=== PATIENT | male | born 1945 | race Hispanic/Latino ===

== ENCOUNTER 2017-01-24 22:13 | Inpatient (IN) | payer MEDICARE ==
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
--- NOTE | 2017-01-25 00:18 | ED PDOC ---
- Laboratory Results Result Diagrams: 01/24/17 23:50 01/24/17 23:50 - ECG O2 Sat by Pulse Oximetry: 98 Medical Decision Making Medical Decision Makin Patient signed out to me from Estela Duke MD pending ED work up (labs and imaging). 0130 US FINDINGS Right deep veins: Unremarkable. No DVT in the right common femoral, femoral, proximal deep femoral or popliteal veins. The veins demonstrate normal color flow, are normally compressible, with normal phasic flow and/or augmentation response. Right superficial veins: Unremarkable. No thrombus in the visualized right great saphenous vein. Left deep veins: Unremarkable. No DVT in the left common femoral, femoral, proximal deep femoral or popliteal veins. The veins demonstrate normal color flow, are normally compressible, with normal phasic flow and/or augmentation response. Left superficial veins: Unremarkable. No thrombus in the visualized left great saphenous vein. Soft tissues: No acute findings. No popliteal cyst. IMPRESSION: Normal bilateral lower extremity duplex venous ultrasound. 0224 Patient has been medically cleared for crisis. 0233 CT HEAD FINDINGS Brain: Cerebral and cerebellar volume loss. Patchy hypodensity is seen in the periventricular and subcortical white matter. Bilateral basal ganglia calcifications. No hemorrhage. Ventricles: Unremarkable. No ventriculomegaly. Bones/joints: Unremarkable. No acute fracture. Soft tissues: Unremarkable. Sinuses: Bilateral middle turbinate norma bullosa. Mastoid air cells: Unremarkable. No mastoid effusion. Other findings: There is a tiny hypodensity along the anterior parafalcine region seen on image 48 series 4 and image 29 through 33 series 602. IMPRESSION: 1. No evidence of an acute intracranial hemorrhage, midline shift or mass effect is identified. 0516 Patient has agreed to sign in to [facility]. Dx: bipolar disorder Scribe Attestation: Documented by Tory Portillo acting as a scribe for Rah Head MD. Scribe Attestation: All medical record entries made by the Scribe were at my direction and personally dictated by me. I have reviewed the chart and agree that the record accurately reflects my personal performance of the history, physical exam, medical decision making, and the department course for this patient. I have also personally directed, reviewed, and agree with the discharge instructions and disposition. Disposition - Clinical Impression Clinical Impression: Bipolar disorder - POA Present On Arrival: None - Disposition Disposition: Admitted as In-Patient Disposition Time: 05:00 Condition: STABLE
[2017-01-25 00:43] LABS: BASO % 0.6 % (0.0-2.0); EOS # 0.2 K/uL (0.0-0.7); EOS % 2.8 % (0.0-4.0); HEMATOCRIT 36.2 % (35.0-51.0); MEAN CELL VOLUME 89.1 fl (80.0-94.0); MEAN CORPUSCULAR HEMOGLOBIN 29.6 pg (27.0-31.0); MEAN CORPUSCULAR HGB CONC 33.2 g/dL (33.0-37.0); MEAN PLATELET VOLUME 8.1 fl (7.2-11.7); MONO # 0.7 K/uL (0.0-0.8); MONO % 11.6 % (0.0-10.0); NEUT # 4.4 K/uL (1.8-7.0); RED CELL DISTRIBUTION WIDTH 15.3 % (11.5-14.5); WHITE BLOOD COUNT 6.5 K/uL (4.8-10.8)
[2017-01-25 00:46] LABS: RBC URINE 1 /hpf (0-3); URINE BACTERIA RARE (<OCC); URINE BILIRUBIN NEGATIVE (NEGATIVE); URINE BLOOD NEGATIVE (NEGATIVE); URINE COLOR STRAW (YELLOW); URINE GLUCOSE (UA) NEG (Normal); URINE KETONE NEGATIVE (NEGATIVE); URINE LEUKOCYTE ESTERASE NEG Leu/uL (Negative); URINE PROTEIN NEGATIVE (NEGATIVE); URINE UROBILINOGEN 0.2-1.0 mg/dL (0.2-1.0); WBC URINE 1 /hpf (0-5)
[2017-01-25 00:58] LABS: ALB/GLOB RATIO 1.6 (1.0-2.1); ALCOHOL SERUM < 10 mg/dl (0-10); ALKALINE PHOSPHATASE 105 U/L (38-126); ALT/SGPT 40 U/L (21-72); AST/SGOT 28 U/L (17-59); BILIRUBIN,TOTAL 0.3 mg/dl (0.2-1.3); BLOOD UREA NITROGEN 31 mg/dl (9-20); CALCIUM 9.1 mg/dL (8.4-10.2); CARBON DIOXIDE 21 mmol/L (22-30); CHLORIDE 111 mmol/L (98-107); GFR AFRICAN-AMERICAN > 60; GLUCOSE,RANDOM 90 mg/dL (75-110); MAGNESIUM 2.4 MG/DL (1.6-2.3); PHOSPHOROUS 3.2 mg/dl (2.5-4.5); POTASSIUM 3.9 MMOL/L (3.6-5.0); SODIUM 139 mmol/l (132-148); TOTAL PROTEIN 6.4 G/DL (6.3-8.2)
[2017-01-25 01:25] LABS: THYROID STIMULATING HORMONE 2.47 mIU/ML (0.46-4.68)
--- NOTE | 2017-01-25 01:30 | US ---
EXAM: US Duplex Bilateral Lower Extremity Veins CLINICAL HISTORY: 71 years old, male; Signs and symptoms; Swelling of limb; Lower extremity, bilateral; Additional info: Leg swelling h/o dvt TECHNIQUE: Real-time ultrasound scan of the veins of the bilateral lower extremities with color Doppler flow, spectral waveform analysis and compression. COMPARISON: No relevant prior studies available. FINDINGS: Right deep veins: Unremarkable. No DVT in the right common femoral, femoral, proximal deep femoral or popliteal veins. The veins demonstrate normal color flow, are normally compressible, with normal phasic flow and/or augmentation response. Right superficial veins: Unremarkable. No thrombus in the visualized right great saphenous vein. Left deep veins: Unremarkable. No DVT in the left common femoral, femoral, proximal deep femoral or popliteal veins. The veins demonstrate normal color flow, are normally compressible, with normal phasic flow and/or augmentation response. Left superficial veins: Unremarkable. No thrombus in the visualized left great saphenous vein. Soft tissues: No acute findings. No popliteal cyst. IMPRESSION: Normal bilateral lower extremity duplex venous ultrasound.
--- NOTE | 2017-01-25 02:34 | CT ---
EXAM: CT Head Without Intravenous Contrast CLINICAL HISTORY: 71 years old, male; Signs and symptoms; Psychosis or psychotic disorder; Unspecified TECHNIQUE: Axial computed tomography images of the head/brain without intravenous contrast. All CT scans at this facility use one or more dose reduction techniques, viz.: automated exposure control; ma/kV adjustment per patient size (including targeted exams where dose is matched to indication; i.e. head); or iterative reconstruction technique. 309 images are submitted. Coronal and sagittal reformatted images were created and reviewed. COMPARISON: No relevant prior studies available. FINDINGS: Brain: Cerebral and cerebellar volume loss. Patchy hypodensity is seen in the periventricular and subcortical white matter. Bilateral basal ganglia calcifications. No hemorrhage. Ventricles: Unremarkable. No ventriculomegaly. Bones/joints: Unremarkable. No acute fracture. Soft tissues: Unremarkable. Sinuses: Bilateral middle turbinate norma bullosa. Mastoid air cells: Unremarkable. No mastoid effusion. Other findings: There is a tiny hypodensity along the anterior parafalcine region seen on image 48 series 4 and image 29 through 33 series 602. IMPRESSION: 1. No evidence of an acute intracranial hemorrhage, midline shift or mass effect is identified.
--- NOTE | 2017-01-25 06:22 | PCM.BM ---
Treatment Plan Problems - Problems identified on initial assessmt altered thought process Date Initiated: 01/25/17 Time Initiated: 06:21 Assessment reference: NA Status: Active medication non adherence Assessment reference: NA Status: Active Treatment assets and liabiliti Patient Assests: good support system, negotiates basic needs Patient Liabilities: medical problems
--- NOTE | 2017-01-25 06:30 | PCM.BM ---
<Myrtle Moncada - Last Filed: 01/25/17 06:55> Treatment Plan Problems - Problems identified on initial assessmt altered thought process Date Initiated: 01/25/17 Time Initiated: 06:21 Assessment reference: NA Status: Active medication non adherence Assessment reference: NA Status: Active Treatment assets and liabiliti Patient Assests: ADL independent, good support system, negotiates basic needs Patient Liabilities: medical problems, other - Milieu Protocol Maintain good personal hygiene: daily Encourage regular showers, daily Remind patient to perform daily oral care, daily Assist patient to perform ADL's Conduct patient checks and document Observation sheet: Q15 minutes Maintain personal safety: every shift Educate patient to report safety concerns to staff, every shift Monitor environment for contraband/sharps Medication safety: Monitor for expected outcome, potential side effects: every shift, Assess barriers to learning: every shift, Assess readiness for medication education: every shift <Malena Delgado - Last Filed: 01/25/17 11:24> - Diagnosis (1) Bipolar 1 disorder Status: Chronic Interventions: Medication management, Individual and group therapy, Psychoeducation 01/25/17 11:24 <Shawn Amanda - Last Filed: 01/27/17 14:04> Family Contact Family involvement: Patient does not wish Family/SO involvement Family contact: Patient declines to allow family contact at present Family contact name: Pt declined - Goals for Treatment Patient goals for treatment: Pt has signed a 48 hour notice and does not feel that he requires treatment at this time. Discharge/Continuing Care - Education Needs Education Needs: Patient Medication, Patient Diagnosis/Disease Process, Patient Coping Skills, Patient Community resources, Patient Aftercare Safety Plan - Discharge Discharge Criteria: Tolerates medication w/o severe side effects, Free of agitation, Normal sleep pattern, Reduction of target symptoms Discharge to:: Home - Treatment Team Participation Was Patient/Family/SO present at Treatment Team Meeting: Yes
[2017-01-25] MEDS ORDERED: Alum-Mag Hydrox-Simethicone Susp (30 mL) PO PRN (06:37)
[2017-01-25] MEDS ORDERED: Magnesium Hydroxide Susp 30 ml UD PO PRN (06:37)
[2017-01-25] MEDS ORDERED: Bismuth Subsalicylate 262 mg/15 ml Sus (240 ml) PO PRN (06:37)
--- NOTE | 2017-01-25 07:01 | RAD ---
HISTORY: psychosis COMPARISON: No prior. FINDINGS: LUNGS: No active pulmonary disease. PLEURA: No significant pleural effusion identified, no pneumothorax apparent. CARDIOVASCULAR: No radiographic findings to suggest acute or significant cardiovascular disease. OSSEOUS STRUCTURES: No significant abnormalities. VISUALIZED UPPER ABDOMEN: Normal. OTHER FINDINGS: None. IMPRESSION: No active disease.
[2017-01-25 08:25] LABS: T4 8.5 ug/dl (5.5-11.0)
[2017-01-25 08:38] LABS: THYROID STIMULATING HORMONE 2.29 mIU/ML (0.46-4.68)
--- NOTE | 2017-01-25 11:03 | CARD ---
APPROVED REPORT EKG Measurement Heart [id number] <Conclusion> Normal sinus rhythm wandering baseline
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
--- NOTE | 2017-01-25 15:06 | CP.PCM.CON ---
<Izabel Rincon - Last Filed: 01/25/17 15:43> History of Present Illness - History of Present Illness History of Present Illness: 71 y/o male seen at bedside in psych unit after consult for medical evaluation. Pt states he admitted himself into the hospital for his bipolar disorder and crazy sexual thoughts. Pt denies suicidal or homicidal ideations. Pt states he does not take any meds that have been prescribed to him. Pt states he does not go and see any doctors regularly. Pt denies any auditory or visual hallucinations. Pt has no physical complaints at this time. Pt denies F/C/N/V/ROMAN /CP/SOB. Pt denies abdominal pain, diarrhea or constipation. PMH: HTN, CKD stage II, bipolar disorder, psychosis, DVT, leaky heart valve PSH: R hip replacement, L ankle and foot surgery All: NKDA Social: former EtOH drinker (>20 yrs), former cig smoker (>30 yrs), former illicit drug user, stating he has tried all drugs Family: denies family history of diabetes, heart disease or stroke. States he lives locally with his girlfriend Review of Systems - Review of Systems All systems: reviewed and no additional remarkable complaints except (per HPI) Past Patient History - Past Medical History & Family History Past Medical History?: Yes - Past Social History Alcohol: None Drugs: Denies - CARDIAC Hx Hypertension: Yes - PULMONARY Hx Tuberculosis: No - NEUROLOGICAL HX Cerebrovascular Accident: No Hx Seizures: No - HEENT Hx HEENT Problems: Yes Hx Cataracts: Yes - RENAL Hx Chronic Kidney Disease: Yes - ENDOCRINE/METABOLIC Hx Endocrine Disorders: No - HEMATOLOGICAL/ONCOLOGICAL Hx Cancer: No Hx Human Immunodeficiency Virus (HIV): No - INTEGUMENTARY Hx Dermatological Problems: No - MUSCULOSKELETAL/RHEUMATOLOGICAL Hx Arthritis: Yes - GASTROINTESTINAL Hx Gastrointestinal Disorders: No - GENITOURINARY/GYNECOLOGICAL Hx Sexually Transmitted Disorders: No - PSYCHIATRIC Hx Bipolar Disorder: Yes Hx Depression: Yes - SURGICAL HISTORY Hx Surgeries: Yes Hx Orthopedic Surgery: Yes (Rhip, L ankle, ft.) Other/Comment: left. foot cyst removal/ broken bone 1992 - ANESTHESIA Hx Anesthesia: Yes Hx Anesthesia Reactions: No Hx Malignant Hyperthermia: No Meds Allergies/Adverse Reactions: Allergies Allergy/AdvReac Type Severity Reaction Status Date / Time No Known Allergies Allergy Verified 01/25/17 08:38 - Medications Medications: Current Medications Acetaminophen (Tylenol 325mg Tab) 650 mg PO Q4 PRN PRN Reason: Pain, moderate (4-7) Al Hydrox/Mg Hydrox/Simethicone (Maalox Plus 30 Ml) 30 ml PO Q4 PRN PRN Reason: Dyspepsia Bismuth Subsalicylate (Pepto-Bismol) 524 mg PO Q4 PRN PRN Reason: Diarrhea Lorazepam (Ativan) 0.5 mg PO HS PRN PRN Reason: Insomnia Stop: 02/08/17 06:38 Lorazepam (Ativan) 0.5 mg PO Q6 PRN PRN Reason: Anixety/Agitation Stop: 02/08/17 06:38 Magnesium Hydroxide (Milk Of Magnesia) 30 ml PO HS PRN PRN Reason: Constipation Olanzapine (Zyprexa) 5 mg PO Q12 CALLIE Physical Exam - Constitutional Appears: Well, Non-toxic, No Acute Distress - Head Exam Head Exam: ATRAUMATIC, NORMOCEPHALIC - Eye Exam Eye Exam: EOMI, Normal appearance, PERRL Pupil Exam: NORMAL ACCOMODATION, PERRL - ENT Exam ENT Exam: Mucous Membranes Moist, Normal Exam - Neck Exam Neck exam: Positive for: Full Rom, Normal Inspection. Negative for: Tenderness - Respiratory Exam Respiratory Exam: Clear to Auscultation Bilateral, NORMAL BREATHING PATTERN. absent: Rales, Wheezes, Respiratory Distress, Stridor - Cardiovascular Exam Cardiovascular Exam: REGULAR RHYTHM, +S1, +S2. absent: Gallop, JVD, Systolic Murmur - GI/Abdominal Exam GI & Abdominal Exam: Normal Bowel Sounds, Soft. absent: Distended - Rectal Exam Rectal Exam: Deferred - Extremities Exam Extremities exam: Positive for: normal capillary refill, pedal edema, pedal pulses present Additional comments: +1 pitting edema noted to B/L legs, extending to level of ankle. Diffuse ecchymotic skin lesions noted to forearm B/L. - Back Exam Back exam: NORMAL INSPECTION. absent: tenderness - Neurological Exam Neurological exam: Abnormal Gait, Alert Additional comments: staggered short stride gait - Psychiatric Exam Psychiatric exam: Normal Affect, Normal Mood - Skin Additional comments: diffuse purpuric skin deposits due to terminal manager anti-coagulation Results - Vital Signs Recent Vital Signs: Last Vital Signs Temp 97.9 F 01/25/17 05:51 Pulse 66 10/31/17 05:51 Resp 20 01/25/17 06:17 BP 151/84 H 01/25/17 05:51 Pulse Ox 99 01/25/17 05:41 - Labs Result Diagrams: 01/24/17 23:50 01/24/17 23:50 Labs: Laboratory Results - last 24 hr 01/24/17 01/24/17 01/25/17 23:50 23:50 00:10 WBC 6.5 RBC 4.07 L Hgb 12.0 Hct 36.2 MCV 89.1 MCH 29.6 MCHC 33.2 RDW 15.3 H Plt Count 164 MPV 8.1 Neut % (Auto) 69.0 Lymph % (Auto) 16.0 L Duval % (Auto) 11.6 H Eos % (Auto) 2.8 Baso % (Auto) 0.6 Neut # 4.4 Lymph # 1.0 Duval # 0.7 Eos # 0.2 Baso # 0.0 Sodium 139 Potassium 3.9 Chloride 111 H Carbon Dioxide 21 L Anion Gap 11 BUN 31 H Creatinine 1.4 Est GFR ( Amer) > 60 Est GFR (Non-Af Amer) 50 Random Glucose 90 Calcium 9.1 Phosphorus 3.2 Magnesium 2.4 H Ferritin Total Bilirubin 0.3 AST 28 ALT 40 Alkaline Phosphatase 105 Troponin I 0.0270 NT-Pro-B Natriuret Pep 253 Total Protein 6.4 Albumin 3.9 Globulin 2.5 Albumin/Globulin Ratio 1.6 Vitamin B12 Free T4 Thyroxine (T4) TSH 3rd Generation 2.47 Urine Color Urine Clarity Urine pH Ur Specific Cobb Urine Protein Urine Glucose (UA) Urine Ketones Urine Blood Urine Nitrate Urine Bilirubin Urine Urobilinogen Ur Leukocyte Esterase Urine RBC (Auto) Urine Microscopic WBC Urine Bacteria Urine Opiates Screen Negative Urine Methadone Screen Negative Ur Barbiturates Screen Negative Ur Phencyclidine Scrn Negative Ur Amphetamines Screen Negative U Benzodiazepines Scrn Negative U Oth Cocaine Metabols Negative U Cannabinoids Screen Negative Alcohol, Quantitative < 10 01/25/17 01/25/17 01/25/17 00:10 07:30 07:30 WBC RBC Hgb Hct MCV MCH MCHC RDW Plt Count MPV Neut % (Auto) Lymph % (Auto) Duval % (Auto) Eos % (Auto) Baso % (Auto) Neut # Lymph # Duval # Eos # Baso # Sodium Potassium Chloride Carbon Dioxide Anion Gap BUN Creatinine Est GFR ( Amer) Est GFR (Non-Af Amer) Random Glucose Calcium Phosphorus Magnesium Ferritin 72.5 Total Bilirubin AST ALT Alkaline Phosphatase Troponin I NT-Pro-B Natriuret Pep Total Protein Albumin Globulin Albumin/Globulin Ratio Vitamin B12 969 H Free T4 1.12 Thyroxine (T4) 8.50 TSH 3rd Generation 2.29 Urine Color Straw Urine Clarity Clear Urine pH 5.0 Ur Specific Cobb < 1.005 Urine Protein Negative Urine Glucose (UA) Neg Urine Ketones Negative Urine Blood Negative Urine Nitrate Negative Urine Bilirubin Negative Urine Urobilinogen 0.2-1.0 Ur Leukocyte Esterase Neg Urine RBC (Auto) 1 Urine Microscopic WBC 1 Urine Bacteria Rare Urine Opiates Screen Urine Methadone Screen Ur Barbiturates Screen Ur Phencyclidine Scrn Ur Amphetamines Screen U Benzodiazepines Scrn U Oth Cocaine Metabols U Cannabinoids Screen Alcohol, Quantitative Assessment & Plan (1) Bipolar disorder Assessment and Plan: -psych to continue with medical management Status: Acute (2) Hypertension Assessment and Plan: -BP 151/84 -Start HCTZ 25mg PO daily -will monitor VS Status: Acute (3) Lower extremity edema Assessment and Plan: -Extremity U/S negative for DVT B/L -pt advised to continue ambulation to pump blood through his legs more, and to elevate the legs on a pillow when in bed Status: Acute <Marky Mcnair - Last Filed: 01/25/17 16:17> Meds - Medications Medications: Current Medications Acetaminophen (Tylenol 325mg Tab) 650 mg PO Q4 PRN PRN Reason: Pain, moderate (4-7) Al Hydrox/Mg Hydrox/Simethicone (Maalox Plus 30 Ml) 30 ml PO Q4 PRN PRN Reason: Dyspepsia Bismuth Subsalicylate (Pepto-Bismol) 524 mg PO Q4 PRN PRN Reason: Diarrhea Hydrochlorothiazide (Hydrodiuril) 25 mg PO DAILY CALLIE Lorazepam (Ativan) 0.5 mg PO HS PRN PRN Reason: Insomnia Stop: 02/08/17 06:38 Lorazepam (Ativan) 0.5 mg PO Q6 PRN PRN Reason: Anixety/Agitation Stop: 02/08/17 06:38 Magnesium Hydroxide (Milk Of Magnesia) 30 ml PO HS PRN PRN Reason: Constipation Olanzapine (Zyprexa) 5 mg PO Q12 CALLIE Results - Vital Signs Recent Vital Signs: Last Vital Signs Temp 97.5 F L 01/25/17 15:55 Pulse 73 01/25/17 15:55 Resp 19 01/25/17 15:55 BP 157/91 H 01/25/17 15:55 Pulse Ox 99 01/25/17 05:41 - Labs Result Diagrams: 01/24/17 23:50 01/24/17 23:50 Labs: Laboratory Results - last 24 hr 01/24/17 01/24/17 01/25/17 23:50 23:50 00:10 WBC 6.5 RBC 4.07 L Hgb 12.0 Hct 36.2 MCV 89.1 MCH 29.6 MCHC 33.2 RDW 15.3 H Plt Count 164 MPV 8.1 Neut % (Auto) 69.0 Lymph % (Auto) 16.0 L Duval % (Auto) 11.6 H Eos % (Auto) 2.8 Baso % (Auto) 0.6 Neut # 4.4 Lymph # 1.0 Duval # 0.7 Eos # 0.2 Baso # 0.0 Sodium 139 Potassium 3.9 Chloride 111 H Carbon Dioxide 21 L Anion Gap 11 BUN 31 H Creatinine 1.4 Est GFR ( Amer) > 60 Est GFR (Non-Af Amer) 50 Random Glucose 90 Calcium 9.1 Phosphorus 3.2 Magnesium 2.4 H Ferritin Total Bilirubin 0.3 AST 28 ALT 40 Alkaline Phosphatase 105 Troponin I 0.0270 NT-Pro-B Natriuret Pep 253 Total Protein 6.4 Albumin 3.9 Globulin 2.5 Albumin/Globulin Ratio 1.6 Vitamin B12 Free T4 Thyroxine (T4) TSH 3rd Generation 2.47 Urine Color Urine Clarity Urine pH Ur Specific Cobb Urine Protein Urine Glucose (UA) Urine Ketones Urine Blood Urine Nitrate Urine Bilirubin Urine Urobilinogen Ur Leukocyte Esterase Urine RBC (Auto) Urine Microscopic WBC Urine Bacteria Urine Opiates Screen Negative Urine Methadone Screen Negative Ur Barbiturates Screen Negative Ur Phencyclidine Scrn Negative Ur Amphetamines Screen Negative U Benzodiazepines Scrn Negative U Oth Cocaine Metabols Negative U Cannabinoids Screen Negative Alcohol, Quantitative < 10 01/25/17 01/25/17 01/25/17 00:10 07:30 07:30 WBC RBC Hgb Hct MCV MCH MCHC RDW Plt Count MPV Neut % (Auto) Lymph % (Auto) Duval % (Auto) Eos % (Auto) Baso % (Auto) Neut # Lymph # Duval # Eos # Baso # Sodium Potassium Chloride Carbon Dioxide Anion Gap BUN Creatinine Est GFR ( Amer) Est GFR (Non-Af Amer) Random Glucose Calcium Phosphorus Magnesium Ferritin 72.5 Total Bilirubin AST ALT Alkaline Phosphatase Troponin I NT-Pro-B Natriuret Pep Total Protein Albumin Globulin Albumin/Globulin Ratio Vitamin B12 969 H Free T4 1.12 Thyroxine (T4) 8.50 TSH 3rd Generation 2.29 Urine Color Straw Urine Clarity Clear Urine pH 5.0 Ur Specific Cobb < 1.005 Urine Protein Negative Urine Glucose (UA) Neg Urine Ketones Negative Urine Blood Negative Urine Nitrate Negative Urine Bilirubin Negative Urine Urobilinogen 0.2-1.0 Ur Leukocyte Esterase Neg Urine RBC (Auto) 1 Urine Microscopic WBC 1 Urine Bacteria Rare Urine Opiates Screen Urine Methadone Screen Ur Barbiturates Screen Ur Phencyclidine Scrn Ur Amphetamines Screen U Benzodiazepines Scrn U Oth Cocaine Metabols U Cannabinoids Screen Alcohol, Quantitative Assessment & Plan - Assessment and Plan (Free Text) Plan: ATTENDING ATTESTATION: Agree with assessment and plan fully as documented above. I have personally seen and examined the patient at bedside. Add HCTZ 25 mg po daily for htn control. Rest of psychiatric management as per primary.
[2017-01-25 18:20] LABS: FOLATE 10.1 ng/mL
[2017-01-26 04:25] VITALS: O2SAT 98
[2017-01-26 07:17] LABS: CHOLESTEROL 166 mg/dL (0-199)
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
[2017-01-27 05:52] VITALS: BP 155/90; PULSE 66; RESP 18; TEMP 97.2
--- NOTE | 2017-01-27 08:57 | PCM.PYCHPN ---
Psychiatric Progress Note - Psychiatric Progress Note Patient seen today, length of contact: Patient evaluated, case discussed w/ team , chart reviewed, 35 min Patient Chief Complaint: "You got a big F-ing mouth" Problems Identified/Issues Discussed: Patient was [place] by [facility] and accepted for [place], pending bed. Patient was irritable towards screen writer and unwilling to talk. Patient continues to be manic w/ pressured speech, flight of ideas, delusions of grandeur, and tangential speech. Patient is also sexually inappropriate. He has poor insight into his current praveen and inappropriate behaviors. Medication Change: No Medical Record Reviewed: Yes Consults ordered or reviewed: Medicine consult appreciated Mental Status Examination - Cognitive Function Orientation: Person, Place, Situation, Time Memory: Impaired Attention: Poor Concentration: Poor Association: Loose Fund of Knowledge: Poor Decription of patient's judgement and insights: Poor I/J - Mood Mood: Euphoric - Affect Affect: Other (Euphoric/ manic) - Speech Speech: Loud, Pressured - Formal Thought Process Formal Thought Process: Delusions (Grandiose), Loosening of associations, Flight of ideas, Circumstantial Psychotic Thoughts and Behaviors: +Grandiose - Suicidal Ideation Suicidal Ideation: No - Homicidal Ideation Homicidal Ideation: No Goal/Treatment Plan - Goal/Treatment Plan Need for Continued Stay: Remain at risks for inpatient hospitalization, Discharge may exacerbated symptoms, Severe functional impairment Progress Toward Problem(s) and Goals/Treatment Plan: Bipolar I Disorder; patient acutely disorganized, manic, sexually inappropriate , and grandiose; he requires acute inpatient admission for treatment and safety. Patient was accepted for involuntary admission at [facility], pending bed and transfer. -Individual and group therapy -Continue Zyprexa 10 mg PO Daily; patient unwilling to take any other medications at this time -Medicine consult appreciated Estimated Date of D/C: 01/28/17
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
== END 2017-01-27 15:30 | DRG 885 ==
LOC: H.ER 22:13 → H.ERHOLD 01-25 05:16 → H.STEP 01-25 06:15
PROVIDERS: ADMIT Psychiatry & Neurology Psychiatry; ATTEND Psychiatry & Neurology Psychiatry
PROC: GZHZZZZ Group Psychotherapy (ICD-10-PCS; principal; 2017-01-25)
DX: F31.9 Bipolar disorder, unspecified (principal); G30.9 Alzheimer's disease, unspecified; F02.80 Dementia in other diseases classified elsewhere, unspecified severity, without behavioral disturbance, psychotic disturbance, mood disturbance, and anxiety; I12.9 Hypertensive chronic kidney disease with stage 1 through stage 4 chronic kidney disease, or unspecified chronic kidney disease; N18.2 Chronic kidney disease, stage 2 (mild); Z87.891 Personal history of nicotine dependence; Z91.14 Patient's other noncompliance with medication regimen; M19.90 Unspecified osteoarthritis, unspecified site; K21.9 Gastro-esophageal reflux disease without esophagitis; Z96.641 Presence of right artificial hip joint

== ENCOUNTER 2017-08-29 21:33 | Emergency (ER) | payer MEDICARE, BC ==
--- NOTE | 2017-08-29 22:35 | ED PDOC ---
HPI: Psych/Substance Abuse <Estuardo Rosales - Last Filed: 08/30/17 06:17> History Per: Patient, EMS Additional Complaint(s): As per EMS pt's called 911 as pt. was acting bizarre and has not been taking his Zyprexa. Pt. admits to not taking his Zyprexa today. Further reports that he he had a "manic" episode today but refuses to describe what occurred. Offers no complaints. Denies SI/HI, hallucinations. <Matheus Ray E - Last Filed: 08/30/17 13:17> Time Seen by Provider: 08/29/17 21:52 Chief Complaint (Nursing): Psychiatric Evaluation Past Medical History Vital Signs: Last Vital Signs Temp 98.2 F 08/30/17 04:11 Pulse 82 08/30/17 04:11 Resp 19 08/30/17 04:11 BP 122/82 08/30/17 04:11 Pulse Ox 99 08/30/17 04:11 <Estuardo Rosales - Last Filed: 08/30/17 06:17> Reviewed: Historical Data, Nursing Documentation, Vital Signs Vital Signs: Last Vital Signs Temp 97.9 F 08/29/17 21:39 Pulse 53 L 08/29/17 21:39 Resp 18 08/29/17 21:39 BP 169/102 H 08/29/17 21:39 Pulse Ox 99 08/29/17 21:39 - Medical History PMH: Anxiety, Arthritis, Bipolar Disorder, Depression, Fractures (R hip, L ft. ankle), HTN, Chronic Kidney Disease Denies: Diabetes, Hepatitis, HIV, Seizures, Sexually Transmitted Disease - Family History Family History: States: No Known Family Hx - Immunization History Hx Tetanus Toxoid Vaccination: No Hx Influenza Vaccination: Yes Hx Pneumococcal Vaccination: Yes <Matheus Ray - Last Filed: 08/30/17 13:17> - Home Medications Home Medications: Ambulatory Orders Medication Instructions Recorded OLANZapine [Zyprexa] 10 mg PO DAILY tab 01/27/17 hydroCHLOROthiazide [Hydrodiuril] 25 mg PO DAILY #0 tab 01/27/17 - Allergies Allergies/Adverse Reactions: Allergies Allergy/AdvReac Type Severity Reaction Status Date / Time No Known Allergies Allergy Verified 08/29/17 21:39 Review of Systems Review Of Systems: ROS cannot be obtained secondary to pt's inabilty to answer questions. <Matheus Ray - Last Filed: 08/30/17 13:17> Physical Exam - Reviewed Nursing Documentation Reviewed: Yes Vital Signs Reviewed: Yes - Physical Exam Appears: Positive for: Well, Non-toxic, No Acute Distress Head Exam: Positive for: ATRAUMATIC, NORMAL INSPECTION, NORMOCEPHALIC Skin: Positive for: Normal Color, Warm, DRY Eye Exam: Positive for: EOMI, Normal appearance, PERRL ENT: Positive for: Normal ENT Inspection Neck: Positive for: Normal, Painless ROM Cardiovascular/Chest: Positive for: Regular Rate, Rhythm Respiratory: Positive for: CNT, Normal Breath Sounds Gastrointestinal/Abdominal: Positive for: Normal Exam, Soft. Negative for: Tenderness Back: Positive for: Normal Inspection Extremity: Positive for: Normal ROM Neurologic/Psych: Positive for: Alert, Oriented, Mood/Affect (pt. is very abrasive but is easily redirected). Negative for: Aphasia, Facial Droop <Matheus Ray - Last Filed: 08/30/17 13:17> - Laboratory Results Result Diagrams: 08/29/17 22:45 08/29/17 22:45 <Estuardo Rosales - Last Filed: 08/30/17 06:17> - Laboratory Results Result Diagrams: 08/29/17 22:45 08/29/17 22:45 - ECG O2 Sat by Pulse Oximetry: 99 <Matheus Ray - Last Filed: 08/30/17 13:17> Medical Decision Making Medical Decision Makin:[address] Ross pending [facility] screener evaluation. Scribe Attestation: Documented by Jose Alfredo Ng, acting as a scribe for Estuardo Rosales MD. Provider Scribe Attestation: All medical record entries made by the Scribe were at my direction and personally dictated by me. I have reviewed the chart and agree that the record accurately reflects my personal performance of the history, physical exam, medical decision making, and the department course for this patient. I have also personally directed, reviewed, and agree with the discharge instructions and disposition. <Estuardo Rosales - Last Filed: 08/30/17 06:17> Disposition <Estuardo Rosales - Last Filed: 08/30/17 06:17> - Patient ED Disposition Is Patient to be Admitted: Transfer of Care (Dr. Rosales continued care at the end of my shift) - Disposition Disposition Time: 00:00 <Matheus Ray - Last Filed: 08/30/17 13:17> - Clinical Impression Clinical Impression: Bipolar disorder - Disposition Condition: STABLE Forms: [facility]
[2017-08-29 23:01] LABS: BASO % 0.5 % (0.0-2.0); EOS # 0.1 K/uL (0.0-0.7); EOS % 2.1 % (0.0-4.0); HEMOGLOBIN 13.6 g/dL (12.0-18.0); LYMPH % 14.2 % (20.0-40.0); MEAN CELL VOLUME 89.9 fl (80.0-94.0); MEAN CORPUSCULAR HEMOGLOBIN 29.9 pg (27.0-31.0); MEAN CORPUSCULAR HGB CONC 33.3 g/dL (33.0-37.0); MEAN PLATELET VOLUME 8.2 fl (7.2-11.7); MONO # 0.8 K/uL (0.0-0.8); MONO % 11.7 % (0.0-10.0); NEUT # 4.9 K/uL (1.8-7.0); NEUT % 71.5 % (50.0-75.0); RBC 4.55 Mil/uL (4.40-5.90); WHITE BLOOD COUNT 6.9 K/uL (4.8-10.8)
[2017-08-29 23:11] LABS: ALB/GLOB RATIO 1.4 (1.0-2.1); ALBUMIN 3.7 g/dL (3.5-5.0); ALT/SGPT 33 U/L (21-72); AST/SGOT 24 U/L (17-59); BLOOD UREA NITROGEN 33 mg/dl (9-20); CALCIUM 9.3 mg/dL (8.4-10.2); GFR AFRICAN-AMERICAN 52; GFR NON-AFRICAN AMERICAN 43
[2017-08-29 23:16] LABS: INR 0.9 (0.9-1.2); PARTIAL THROMBOPLASTIN TIME 30.8 Seconds (25.6-37.1); PROTHROMBIN TIME 10.1 Seconds (9.8-13.1)
--- NOTE | 2017-08-30 00:34 | CT ---
EXAM: CT Head Without Intravenous Contrast CLINICAL HISTORY: 72 years old, male; Screening exam; Additional info: Bizarre behavior TECHNIQUE: Axial computed tomography images of the head/brain without intravenous contrast. All CT scans at this facility use one or more dose reduction techniques, viz.: automated exposure control; ma/kV adjustment per patient size (including targeted exams where dose is matched to indication; i.e. head); or iterative reconstruction technique. Coronal and sagittal reformatted images were created and reviewed. COMPARISON: CT - HEAD W/O CONTRAST 2017-01-25 02:15 FINDINGS: Brain: [id number] atrophy. No intracranial hemorrhage. No mass. Few scattered foci of decreased attenuation within periventricular/subcortical white matter. No definite edema. Ventricles: No hydrocephalus. Bones/joints: No acute fracture. Soft tissues: Unremarkable. Vasculature: Minimal atherosclerotic disease of intracranial arteries. Sinuses: Minimal mucosal thickening of LEFT maxillary sinus. Mastoid air cells: No mastoid effusion. Orbits: Unremarkable as visualized. IMPRESSION: 1. Nonspecific white matter changes. Acute infarction may be CT occult within first 24 hours. If a focal deficit persists, consider followup CT or MRI for further evaluation. 2. Incidental/non-acute findings are described above.
[2017-08-30 05:56] LABS: SQUAMOUS EPITHIAL < 1 /hpf (0-5); URINE BILIRUBIN NEGATIVE (NEGATIVE); URINE BLOOD SMALL (NEGATIVE); URINE CLARITY CLEAR (Clear); URINE COLOR STRAW (YELLOW); URINE GLUCOSE (UA) NEG (Normal); URINE LEUKOCYTE ESTERASE NEG Leu/uL (Negative); URINE PROTEIN 30 mg/dL (NEGATIVE); URINE UROBILINOGEN 0.2-1.0 mg/dL (0.2-1.0)
[2017-08-30 06:19] LABS: BARBITURATES, UR NEGATIVE (NEGATIVE); BENZODIAZEPINES, UR NEGATIVE (NEGATIVE); OPIATES, UR NEGATIVE (NEGATIVE)
[2017-08-30 06:47] LABS: PHENCYCLIDINE, UR NEGATIVE (NEGATIVE)
--- NOTE | 2017-08-30 07:34 | ED PDOC ---
- Laboratory Results Result Diagrams: 08/29/17 22:45 08/29/17 22:45 - ECG O2 Sat by Pulse Oximetry: 94 (RA) Pulse Ox Interpretation: Normal - Progress Re-evaluation Time: 15:00 Condition: Re-examined, Unchanged Medical Decision Making Medical Decision Making: Time: 0700 Patient signed out to me by Dr. Rosales pending [facility] screen. Scribe Attestation: Documented by Saad Perera, acting as a scribe for Kenny Ross MD Provider Scribe Attestation: All medical record entries made by the Scribe were at my direction and personally dictated by me. I have reviewed the chart and agree that the record accurately reflects my personal performance of the history, physical exam, medical decision making, and the department course for this patient. I have also personally directed, reviewed, and agree with the discharge instructions and disposition. Disposition Counseled Patient/Family Regarding: Studies Performed, Diagnosis - Clinical Impression Clinical Impression: Bipolar disorder - POA Present On Arrival: None - Disposition Disposition: Transfer of Care Disposition Time: 17:00 Condition: STABLE Patient Signed Over To: Alexandro Martin
--- NOTE | 2017-08-30 08:54 | RAD ---
HISTORY: clearance COMPARISON: Chest radiograph dated 01/24/2017. FINDINGS: LUNGS: No active pulmonary disease. PLEURA: No significant pleural effusion identified, no pneumothorax apparent. CARDIOVASCULAR: Atherosclerotic aortic calcifications. Cardiomediastinal silhouette stably enlarged. OSSEOUS STRUCTURES: Unchanged. VISUALIZED UPPER ABDOMEN: Normal. OTHER FINDINGS: None. IMPRESSION: No active disease.
--- NOTE | 2017-08-30 10:25 | CARD ---
APPROVED REPORT EKG Measurement Heart [id number] CO [id number] <Conclusion> Sinus bradycardia Incomplete left bundle branch block Borderline ECG
--- NOTE | 2017-08-30 10:49 | CP.PCM.CON ---
History of Present Illness - History of Present Illness History of Present Illness: Psychiatry consult note Patient is a very poor historian due to acute praveen, pressured speech and disorganization. History obtained from the chart. HPI: 72 yo male w/ history of Bipolar disorder presents w/ disorganized thoughts , praveen, pressured speech, +sexually inappropriate, grandiose and delusional. He denies AH/VH/SI/HI. PPHx: h/o multiple past psychiatric hospitalizations PMHx: Reports h/o HTN, DVTs, Renal insufficiency (2/2 fpc [place] use), Alzheimers Dementia, GERD (Uncertain if this medical history is accurate as the patient is a poor historian) ALL: Denies drug allergies SHx: Denies current illicit drug use, lives w/ gf; h/o illicit drug use and Acid use MSE: A + O x self, [facility], 2018, poor eye contact, calm, mood "fine", affect- labile, thought process- disorganized, thought content- +Delusions/sexually inappropriate, denies AH/VH/SI/HI, poor I/J, poor impulse control Impression: 72 yo male w/ h/o Bipolar Disorder presents acutely manic and decompensated. He is not agreeable to voluntary psychiatric admission. Recommendations: -Screen for involuntary psychiatric admission by [facility] to determine if patient meets criteria for involuntary commitment Past Patient History - Past Medical History & Family History Past Medical History?: Yes - Past Social History Smoking Status: Former Smoker - CARDIAC Hx Cardiac Disorders: No Hx Hypertension: Yes - PULMONARY Hx Tuberculosis: No - NEUROLOGICAL HX Cerebrovascular Accident: No Hx Seizures: No - HEENT Hx HEENT Problems: Yes Hx Cataracts: Yes - RENAL Hx Chronic Kidney Disease: Yes - ENDOCRINE/METABOLIC Hx Endocrine Disorders: No - HEMATOLOGICAL/ONCOLOGICAL Hx Cancer: No Hx Human Immunodeficiency Virus (HIV): No - INTEGUMENTARY Hx Dermatological Problems: No - MUSCULOSKELETAL/RHEUMATOLOGICAL Hx Arthritis: Yes Hx Fractures: Yes (R hip, L ft. ankle) - GASTROINTESTINAL Hx Gastrointestinal Disorders: No - GENITOURINARY/GYNECOLOGICAL Hx Sexually Transmitted Disorders: No - PSYCHIATRIC Hx Anxiety: Yes Hx Bipolar Disorder: Yes Hx Depression: Yes - SURGICAL HISTORY Hx Surgeries: Yes Hx Orthopedic Surgery: Yes (Rhip, L ankle, ft.) Other/Comment: left. foot cyst removal/ broken bone 1992 - ANESTHESIA Hx Anesthesia: Yes Hx Anesthesia Reactions: No Hx Malignant Hyperthermia: No Meds Allergies/Adverse Reactions: Allergies Allergy/AdvReac Type Severity Reaction Status Date / Time No Known Allergies Allergy Verified 08/29/17 21:39 Results - Vital Signs Recent Vital Signs: Last Vital Signs Temp 98.2 F 08/30/17 04:11 Pulse 72 08/30/17 09:51 Resp 18 08/30/17 09:51 BP 154/94 H 08/30/17 09:51 Pulse Ox 100 08/30/17 09:51 - Labs Result Diagrams: 08/29/17 22:45 08/29/17 22:45 Labs: Laboratory Results - last 24 hr 08/29/17 08/29/17 08/29/17 22:45 22:45 22:45 WBC 6.9 RBC 4.55 Hgb 13.6 Hct 40.9 MCV 89.9 MCH 29.9 MCHC 33.3 RDW 16.0 H Plt Count 154 MPV 8.2 Neut % (Auto) 71.5 Lymph % (Auto) 14.2 L [place] % (Auto) 11.7 H Eos % (Auto) 2.1 Baso % (Auto) 0.5 Neut # (Auto) 4.9 Lymph # (Auto) 1.0 [place] # (Auto) 0.8 Eos # (Auto) 0.1 Baso # (Auto) 0.0 PT 10.1 INR 0.9 APTT 30.8 Sodium 142 Potassium 3.6 Chloride 108 H Carbon Dioxide 24 Anion Gap 14 BUN 33 H Creatinine 1.6 H Est GFR ( Amer) 52 Est GFR (Non-Af Amer) 43 Random Glucose 95 Calcium 9.3 Total Bilirubin 0.4 AST 24 ALT 33 Alkaline Phosphatase 102 Total Protein 6.4 Albumin 3.7 Globulin 2.7 Albumin/Globulin Ratio 1.4 Urine Color Urine Clarity Urine pH Ur Specific [place] Urine Protein Urine Glucose (UA) Urine Ketones Urine Blood Urine Nitrate Urine Bilirubin Urine Urobilinogen Ur Leukocyte Esterase Urine RBC (Auto) Urine Microscopic WBC Ur Squamous Epith Cells Urine Opiates Screen Urine Methadone Screen Ur Barbiturates Screen Ur Phencyclidine Scrn Ur Amphetamines Screen U Benzodiazepines Scrn U Oth Cocaine Metabols U Cannabinoids Screen Alcohol, Quantitative < 10 08/30/17 08/30/17 05:42 05:42 WBC RBC Hgb Hct MCV MCH MCHC RDW Plt Count MPV Neut % (Auto) Lymph % (Auto) [place] % (Auto) Eos % (Auto) Baso % (Auto) Neut # (Auto) Lymph # (Auto) [place] # (Auto) Eos # (Auto) Baso # (Auto) PT INR APTT Sodium Potassium Chloride Carbon Dioxide Anion Gap BUN Creatinine Est GFR ( Amer) Est GFR (Non-Af Amer) Random Glucose Calcium Total Bilirubin AST ALT Alkaline Phosphatase Total Protein Albumin Globulin Albumin/Globulin Ratio Urine Color Straw Urine Clarity Clear Urine pH 6.0 Ur Specific [place] 1.006 Urine Protein 30 Urine Glucose (UA) Neg Urine Ketones Negative Urine Blood Small Urine Nitrate Negative Urine Bilirubin Negative Urine Urobilinogen 0.2-1.0 Ur Leukocyte Esterase Neg Urine RBC (Auto) 2 Urine Microscopic WBC < 1 Ur Squamous Epith Cells < 1 Urine Opiates Screen Negative Urine Methadone Screen Negative Ur Barbiturates Screen Negative Ur Phencyclidine Scrn Negative Ur Amphetamines Screen Negative U Benzodiazepines Scrn Negative U Oth Cocaine Metabols Negative U Cannabinoids Screen Negative Alcohol, Quantitative
--- NOTE | 2017-08-30 17:55 | ED PDOC ---
- Laboratory Results Result Diagrams: 08/29/17 22:45 08/29/17 22:45 - ECG O2 Sat by Pulse Oximetry: 94 (RA) - Progress ED Course And Treament: 1700: Medically cleared from previous attending. Pending [facility] evaluation. Stable. Took over care from Dr. Ross. Disposition - Clinical Impression Clinical Impression: Bipolar disorder - POA Present On Arrival: None - Disposition Disposition: Other Institution Disposition Time: 20:00 Condition: STABLE
[2017-08-30 19:51] VITALS: BP 146/91; PULSE 64; RESP 17; TEMP 98
[2017-08-31 23:52] VITALS: O2SAT 94
== END 2017-08-30 21:12 | disposition short-term general hospital (02) ==
LOC: H.ER 21:33
DX: F31.9 Bipolar disorder, unspecified (principal); F02.80 Dementia in other diseases classified elsewhere, unspecified severity, without behavioral disturbance, psychotic disturbance, mood disturbance, and anxiety; F41.9 Anxiety disorder, unspecified; G30.9 Alzheimer's disease, unspecified; I10 Essential (primary) hypertension; N18.9 Chronic kidney disease, unspecified; I12.9 Hypertensive chronic kidney disease with stage 1 through stage 4 chronic kidney disease, or unspecified chronic kidney disease; Z87.891 Personal history of nicotine dependence; Z00.8 Encounter for other general examination
CPT/HCPCS: 70450; 71045; 80053; 81003; 82948; 85025; 85610; 85730; 93005; 96372; 99285; G0480; J1630; J2060